=== PATIENT | female | born 2005 | race African-American/Black ===

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

== ENCOUNTER 2025-01-19 16:45 | Emergency (ER) | payer BC ==
[~2025-01-19] VITALS: Ht 160 cm; Wt 63.5 kg
[2025-01-19 16:58] VITALS: BP 105/89; TEMP 97.9; O2SAT 99
[2025-01-19] MEDS ORDERED: dexaMETHasone SOD PHOSPHATE 1 ML ONE (17:24)
[2025-01-19] MEDS: IV NS 0.9% 1,000 ML BAG IV ONE (17:25)
[2025-01-19] MEDS ORDERED: PENICILLIN G BENZATHINE 2.4 MMU/4 ML ML IM ONE (17:28)
[2025-01-19] MEDS: dexaMETHasone SOD PHOSPHATE 10 MG/ML VIAL IV ONE (17:30)
[2025-01-19] MEDS: PENICILLIN G BENZATHINE 2.4 MMU/4 ML ML IM ONE (17:35)
[2025-01-19 17:46] LABS: MONOTEST POSITIVE (NEGATIVE)
== END 2025-01-19 19:10 | disposition home or self-care (01) ==
LOC: ER 16:48
DX: B27.90 Infectious mononucleosis, unspecified without complication (principal); J02.9 Acute pharyngitis, unspecified; J45.990 Exercise induced bronchospasm; Z20.822 Contact with and (suspected) exposure to COVID-19
CPT/HCPCS: 99284; 96374; 96361; 87426; 96372; 87804 ×2; 87070; 86308; 36415; 87880; J0558; J1100; J7030; 86403-TC